=== PATIENT | male | born 1985 | race Two or more races ===

== ENCOUNTER 2018-08-09 09:58 | Emergency (ER) | payer SELFPAY ==
--- NOTE | 2018-08-09 10:08 | ER Document Report ---
ED Medical Screen (RME) - General Chief Complaint: Abdominal Pain Stated Complaint: PELVIC PAIN Time Seen by Provider: 08/09/18 10:06 Mode of Arrival: Ambulatory Information source: Patient Notes: 32-year-old male presented to ED for pelvic pain for the last couple days. He states he has had pelvic pain off and on since he was 11 years old. 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 He states 6 years ago he was seen by a urologist and they told him that he had inflamed veins in his left testicle but nothing that needed to be treated at that time. He states this provided with the same one who did his torsion when he was 9. 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 Patient is alert oriented respirations regular and unlabored speaking in full sentences he does walk with a even steady gait. He denies any redness swelling or change in the appearance to the testicle it is just very sensitive. I have greeted and performed a rapid initial assessment of this patient. A comprehensive ED assessment and evaluation of the patient, analysis of test results and completion of medical decision making process will be conducted by an additional ED providers. Dictation of this chart was performed using voice recognition software; therefore, there may be some unintended grammatical errors. TRAVEL OUTSIDE OF THE [place] IN LAST 30 DAYS: No - Related Data Allergies/Adverse Reactions: No Known Allergies Allergy (Unverified 08/09/18 09:59)
[2018-08-09 10:25] LABS: APPEARANCE,URINE CLEAR; BILIRUBIN,URINE NEGATIVE (NEGATIVE); COLOR,URINE YELLOW; GLUCOSE, URINE NEGATIVE (NEGATIVE); KETONES,URINE TRACE mg/dL (NEGATIVE); LEUKOCYTE ESTERASE,URINE NEGATIVE (NEGATIVE); NITRITE,URINE NEGATIVE (NEGATIVE); PROTEIN,URINE NEGATIVE (NEGATIVE); URINE SPECIFIC GRAVITY 1.024; UROBILINOGEN,URINE NEGATIVE mg/dL (<2.0)
--- NOTE | 2018-08-09 13:21 | RADIOLOGY REPORT (SQ) ---
EXAM DESCRIPTION: U/S SCROTUM W/DOPPLER COMPLETED DATE/TIME: 08/09/2018 1:08 pm REASON FOR STUDY: only has left testicle due to torsion COMPARISON: None. TECHNIQUE: Static and realtime armenta scale imaging of the scrotum and testes. Selected color Doppler and spectral images recorded to document blood flow. LIMITATIONS: None. FINDINGS: RIGHT: TESTICLE: Surgically absent. HYDROCELE OR VARICOCELE: No. HERNIA OR EXTRA-TESTICULAR MASS: No. OTHER: No other significant finding. LEFT: TESTICLE: Normal size, 4.1 x 2.8 x 2.5 cm. Normal echotexture. Normal blood flow. No mass. EPIDIDYMIS: Normal, 11 mm. HYDROCELE OR VARICOCELE: No. HERNIA OR EXTRA-TESTICULAR MASS: No. OTHER: No other significant finding. IMPRESSION: NORMAL SCROTAL ULTRASOUND. NO EVIDENCE OF TESTICULAR MASS OR TORSION. PRIOR RIGHT ORCHI ECTOMY. TECHNICAL DOCUMENTATION: JOB ID: [id number] [employer]- All Rights Reserved Reading location - IP/workstation name: [email or web address]
--- NOTE | 2018-08-09 13:59 | ER Document Report ---
"ED GI/ - General Chief Complaint: Abdominal Pain Stated Complaint: PELVIC PAIN Time Seen by Provider: 08/09/18 10:06 Mode of Arrival: Ambulatory TRAVEL OUTSIDE OF THE [place] IN LAST 30 DAYS: No - HPI Patient complains to provider of: Testicular pain Onset: Other Timing/Duration: Intermittent Quality of pain: Achy, Dull Severity at maximum: Mild Severity in ED: Mild Pain Level: 2 Location: Left testicle Associated symptoms: Other Exacerbated by: Movement Relieved by: Denies Similar symptoms previously: Yes Recently seen / treated by doctor: No - Related Data Allergies/Adverse Reactions: No Known Allergies Allergy (Unverified 08/09/18 09:59) Past Medical History - General Information source: Patient - Social History Smoking Status: Never Smoker Chew tobacco use (# tins/day): No Frequency of alcohol use: None Drug Abuse: None Lives with: Family Family History: Reviewed & Not Pertinent Patient has suicidal ideation: No Patient has homicidal ideation: No - Past Medical History Cardiac Medical History: Reports: None Pulmonary Medical History: Reports: None EENT Medical History: Reports: None Neurological Medical History: Reports: None Endocrine Medical History: Reports: None Renal/ Medical History: Reports: Hx Testicular Torsion Malignancy Medical History: Reports None GI Medical History: Reports: None Musculoskeletal Medical History: Reports None Skin Medical History: Reports None Psychiatric Medical History: Reports: None Traumatic Medical History: Reports: None Infectious Medical History: Reports: None Past Surgical History: Reports: Hx Kidney (Renal Surgery) - left kidney, Hx Testicular Surgery - right - Immunizations Immunizations up to date: Yes Hx Diphtheria, Pertussis, Tetanus Vaccination: Yes Review of Systems - Review of Systems Constitutional: No symptoms reported EENT: No symptoms reported Cardiovascular: No symptoms reported Respiratory: No symptoms reported Gastrointestinal: No symptoms reported Genitourinary: No symptoms reported Male Genitourinary: Testicular pain - Left Musculoskeletal: No symptoms reported Skin: No symptoms reported Hematologic/Lymphatic: No symptoms reported Neurological/Psychological: No symptoms reported -: Yes All other systems reviewed and negative Physical Exam - Vital signs Vitals: Temp Pulse Resp BP Pulse Ox 97.7 F 73 18 128/82 H 100 08/09/18 10:05 08/09/18 10:05 08/09/18 10:05 08/09/18 10:05 08/09/18 10:05 Interpretation: Normal - General General appearance: Appears well, Alert - HEENT Head: Normocephalic, Atraumatic Eyes: Normal Pupils: PERRL - Respiratory Respiratory status: No respiratory distress Chest status: Nontender Breath sounds: Normal Chest palpation: Normal - Cardiovascular Rhythm: Regular Heart sounds: Normal auscultation Murmur: No - Abdominal Inspection: Normal Distension: No distension Bowel sounds: Normal Tenderness: Nontender Organomegaly: No organomegaly - Genitourinary Inspection: Normal Tenderness: Testicle tender - Patient only has a left testicle right testicle has been removed Cremasteric reflex: Normal Scrotum: Normal - Back Back: Normal, Nontender - Extremities General upper extremity: Normal inspection, Nontender, Normal color, Normal ROM, Normal temperature General lower extremity: Normal inspection, Nontender, Normal color, Normal ROM, Normal temperature, Normal weight bearing. No: Melissa's sign - Neurological Neuro grossly intact: Yes Cognition: Normal Orientation: AAOx4 [place] Coma Scale Eye Opening: Spontaneous [place] Coma Scale Verbal: Oriented [place] Coma Scale Motor: Obeys Commands [place] Coma Scale Total: 15 Speech: Normal Motor strength normal: LUE, RUE, LLE, RLE Sensory: Normal - Psychological Associated symptoms: Normal affect, Normal mood - Skin Skin Temperature: Warm Skin Moisture: Dry Skin Color: Normal Course - Re-evaluation Re-evalutation: 08/09/18 20:19 Ultrasound negative for any acute changes to the left testicle. Right testicle was removed when he was 11 years old for testicular torsion. His left kidney was removed for a donation to another person. Patient is alert oriented he states the pain is just minimal he just needs to make sure there was nothing wrong with the left testicle as he only has one. Patient was discharged home with instructions to follow-up with a urologist. He was given a list of local urologist to follow-up with. - Vital Signs Vital signs: Temp Pulse Resp BP Pulse Ox 97.8 F 60 18 135/87 H 98 08/09/18 13:56 08/09/18 13:56 08/09/18 13:56 08/09/18 13:56 08/09/18 13:56 - Laboratory Laboratory results interpreted by me: 08/09/18 10:10 Urine Ketones TRACE H - Diagnostic Test Radiology reviewed: Image reviewed, Reports reviewed Discharge - Discharge Clinical Impression: left scrotal pain Condition: Stable Disposition: HOME, SELF-CARE Additional Instructions: You were seen today for left scrotal and pelvic pain. Your ultrasound does not show any acute abnormalities. It does show that you have a right orchiectomy or removal of the right testicle. Your urine was negative for any acute changes at this time. I have sent a GC and chlamydia urine as we discussed. You will get a call tomorrow if this is positive. Or you can call [phone] to ask for the results during business hours tomorrow. FOLLOW-UP CARE: If you have been referred to a physician for follow-up care, call the physicians office for an appointment as you were instructed or within the next two days. If you experience worsening or a significant change in your symptoms, notify the physician immediately or return to the Emergency Department at any time for re-evaluation. [facility] 3.8 (9) Urologist [place], [place] Malini Olivas MD | [facility] No reviews Urologist [place] [facility] No reviews Doctor [place], [place] "
[2018-08-09 14:01] VITALS: BP 135/87
[2018-08-09 16:07] LABS: CHLAM PCR NOT DETECTED (NOT DETECT)
== END 2018-08-09 14:06 | disposition home or self-care (01) ==
LOC: ER 09:58
DX: N50.82 Scrotal pain (principal); N50.812 Left testicular pain; Z90.79 Acquired absence of other genital organ(s); Z87.438 Personal history of other diseases of male genital organs; Z90.5 Acquired absence of kidney
CPT/HCPCS: 76870; 81001; 87491; 87591; 93976; 99284